=== PATIENT | male | born 2000 ===

== ENCOUNTER 2024-04-30 21:53 | Emergency (ER) | payer OTHER, SELFPAY ==
[2024-04-30 22:00] VITALS: BP 142/91; PULSE 86; RESP 18; TEMP 36.9; O2SAT 98; BMI 30.7
[2024-04-30 22:13] VITALS: BP 131/88; PULSE 79; RESP 17; TEMP 37.2; O2SAT 98
--- NOTE | 2024-04-30 22:59 | ED.MALEGU ---
HPI - Male Genitourinary General Chief complaint: Urogenital-Male Stated complaint: lower extremity pain, unable to urinate Time Seen by Provider: 04/30/24 22:26 Source: patient Mode of arrival: ambulatory Limitations: no limitations History of Present Illness ED Provider: Dr. Lily Arredondo HPI Narrative: Patient comes to the emergency room complaining of priapism that started 15-1/2 hours ago. Patient states that this morning he woke up at 07:45 with an erection, and now what 23:00, patient came to the ED. per patient's mother, patient takes trazodone. Related Data Previous Rx's ?Medication ?Instructions ?Recorded ibuprofen 600 mg tablet 600 mg PO Q8H PRN pain #14 tabs 05/01/24 Allergies Allergy/AdvReac Type Severity Reaction Status Date / Time No Known Allergies Allergy Verified 04/30/24 22:04 Review of Systems Review of Systems: Constitutional : No Weight loss, No Fever, No Chills, No Night Sweats, No Fatigue, No Malaise ENT/Mouth : No Hearing loss, No Ear Pain, No Nasal Congestion, No Sinus Pain, No Hoarseness, No sore throat, No Rhinorrhea, No Swallowing Difficulty Eyes: No Eye Pain, No Swelling, No Redness, No Foreign Body, No Discharge, No Vision Changes Cardiovascular : No Chest Pain, No SOB, No Dyspnea on Exertion, No Orthopnea, No Edema, No Palpitations Respiratory : No Cough, No Sputum, No Wheezing, No Smoke Exposure, No Dyspnea Gastrointestinal : No Nausea, No Vomiting, No Diarrhea, No Constipation, No abdominal Pain, No Hematochezia, No Melena Genitourinary : Complaining of priapism for 15-1/2 hours, No Dysuria, No Urinary Frequency, No Hematuria, No Urinary Incontinence, No Urgency, No Flank Pain, No Urinary Flow Changes, No Hesitancy Musculoskeletal : No joint pain, No Myalgias, No Joint Swelling Skin : No Skin Lesions, No rash Neuro : No Weakness, No Numbness, No Paresthesias, No Loss of Consciousness, No Dizziness, No Headache Psych : No Anxiety/Panic, No Depression, No SI/HI/AH/VH, No Social Issues, Heme/Lymph: No Bruising, No Bleeding,No Lymphadenopathy Endocrine : No Polyuria, No Polydipsia, No Temperature Intolerance PMFSH Past Medical History Medical History ADHD Bipolar disorder Priapism Social History Social History Advance Directives: No Advance Directives Information Provided: No Do you have a plan to hurt others: No Plan Physical Exam Vital Signs: Vital Signs: Last Vital Signs Temp 98 F 05/01/24 00:00 Pulse 61 05/01/24 00:00 Resp 16 05/01/24 00:00 BP 132/94 H 05/01/24 00:00 Pulse Ox 100 05/01/24 00:00 O2 Del Method Room Air 05/01/24 00:00 BMI result Body Mass Index 30.7 Const: Other: Appearance: Alert. Oriented X3. No acute distress. Eyes: Pupils equal, round and reactive to light. ENT: Pharynx normal. Neck: Normal inspection. Neck supple. No lymph nodes noted. No crepitus CVS: Normal heart rate and rhythm. Pulses normal. Normal S1 and S2 Respiratory: No respiratory distress. Breath sounds normal. No Wheezing. No rales Abdomen: Soft and nontender. No rigidity. No distention. : Patient has priapism Skin: Skin warm and dry. Normal skin color. Normal skin turgor. Extremities: No lower extremity edema. No Lacerations. No Rash Neuro: Oriented X 3. No motor deficit. No sensory deficit. Moving all extremities. No slurred speech. CN 2 through 12 grossly intact Psych: calm, cooperative, normal affect Course Course Course Narrative: I discussed the patient with Dr. Rowan, recommendations: mix 1mL (10mg) of phenylephrine in 9 mL of normal saline, inject in the penis 0.5 mL Q 5 minutes for 5 doses -patient very anxious, given 2 mg of p.o. Ativan and 50 mg of diphenhydramine p.o. -after 5 doses, the patient still had priapism. An 18 gauge needle was inserted in the middle lateral aspect of the penis, approximately 250 cc of blood were drained. The direction significantly reduced, patient states that he was able to urinate without any difficulty. Patient states that he did not urinate for almost 12 hours due to the erection. -I discussed with the patient that unfortunately, an erection lasting more than 4 hours puts him at high risk of erectile dysfunction -is likely that patient has trazodone caused the priapism. I discussed with the patient to discontinue taking trazodone. Patient's mother will call patient's psychiatrist tomorrow to inform them about the side effect that the medication had and to start a different med Medications Administered Discontinued Medications Generic Name Dose Route Start Last Admin Trade Name Timbo PRN Reason Stop Dose Admin Diphenhydramine HCl 50 mg 04/30/24 22:47 04/30/24 23:01 Diphenhydramine Hcl 25 Mg Capsule PO 04/30/24 22:48 50 mg ONCE ONE Administration Lidocaine HCl 10 ml 04/30/24 22:41 04/30/24 23:01 Lidocaine Hcl 1 % 10 Ml Vial INFILTRATI 04/30/24 22:42 10 ml ONCE ONE Administration Lidocaine HCl 20 ml 04/30/24 22:41 04/30/24 23:01 Lidocaine Hcl 2 % 20 Ml Vial INFILTRATI 04/30/24 22:42 20 ml ONCE ONE Administration Lorazepam 2 mg 04/30/24 22:47 04/30/24 23:01 Lorazepam 1 Mg Tablet PO 04/30/24 22:48 2 mg ONCE ONE Administration Phenylephrine HCl 1,000 mcg 04/30/24 22:40 04/30/24 23:01 Phenylephrine Hcl 1,000 Mcg/10 Ml Syringe IVPUSH 04/30/24 22:41 1,000 mcg STAT STA Administration Medical Decision Making Medical Decision Making MDM Narrative: -2 samples of penile blood were sent. According to the oil heat technician in the lab, she told me that the 1st set of labs, the pH was less than 6.5, and the 2nd 1 was also less than 6.5. Unclear why they resulted a pH of 7.33. The chemistry tech stated that they had trouble with a blood sample since this is penile blood and the instrumentation in the lab is not meant for penile blood. They said that they were not sure what to do, they had trouble running the blood. -patient's erection nearly resolved. Patient has no penile pain, able to urinate -I had a lengthy discussion with the patient to never let an erection go over 4 hours. If patient has an erection that is lasting more than an hour, he should start hitting towards the ED Differential Diagnosis Differential Diagnoses: The differential diagnosis associated with the presentation includes (Priapism high-flow, low-flow priapism, medication side-effect) Admission/Observation Consideration of admission/observation: Escalation of care including admission/observation considered (Given patient's presentation and length of symptoms, observation was considered) Consult Healthcare Provider Management of the patient was discussed with: Tile Setter Supervisor Lab Data Labs: Lab Results 04/30/24 Range/Units 23:38 VBG pH 7.33 (7.32-7.43) VBG pCO2 39 mmHg VBG pO2 66 mmHg VBG HCO3 21 L (22-26) mmol/L VBG O2 Saturation 93.0 % VBG Base Excess -4.3 mmol/L Procedures Penile Procedure Time Out Performed: Yes Indication: priapism management Procedural Sedation: No Sedation/Analgesia: benzodiazepines (P.o.) Local Anesthesia Used: lidocaine 1% without epi Amount of anesthesia used (mL): 15 Priapism Management: aspiration and phenylephrine injection Patient Tolerated Procedure: well and no complications Complications: none Critical Care Time Critical Care Time Critical Care Time: Yes Total Critical Care Time: 45 Attestation: I have personally provided critical care time. Time includes review of lab data, radiology results, discussion with consultants, and monitoring for potential decompensation. Intervention performed as documented. Discharge Plan Discharge Clinical Impression: Priapism Patient Disposition: Home, Self-Care Instructions: Priapism (ED) Additional Instructions: Please discontinue taking trazodone. Please call your psychiatrist tomorrow for medication substitution. An erection lasting more than 4 hours puts you a high risk of erectile dysfunction. If you ever have priapism again, please return immediately to the emergency room. Please follow-up with your primary care physician tomorrow. If you have any worsening or new symptoms, please return to the emergency room or call 911 Prescriptions: New ibuprofen 600 mg tablet 600 mg PO Q8H PRN (Reason: pain) Qty: 14 0RF Referrals: Haris Rowan MD [Physician] - 05/01/24 Print Language: [place] Citizen
[2024-04-30] MEDS: Lidocaine HCl 2 % 20 ML VIAL INFILTRATI (23:01)
[2024-04-30] MEDS: Phenylephrine HCL 1,000 MCG/10 ML SYRINGE 1000 MCG IVPUSH (23:01)
[2024-04-30] MEDS: diphenhydrAMINE HCL 25 MG CAPSULE 50 MG PO (23:01)
[2024-04-30] MEDS: Lidocaine HCl 1 % 10 ML VIAL INFILTRATI (23:01)
[2024-04-30] MEDS: LORazepam 1 MG TABLET 2 MG PO (23:01)
[2024-04-30 23:47] LABS: VBG Base Excess -4.3 mmol/L; VBG HCO3 21 mmol/L (22-26); VBG pCO2 39 mmHg; VBG pH 7.33 (7.32-7.43); VBG pO2 66 mmHg
[2024-04-30 23:49] LABS: Venous Blood Gas Refer to POC result
[2024-05-01] VITALS: BP 132/94; PULSE 61; RESP 16; TEMP 36.6; O2SAT 100
--- NOTE | 2024-05-01 00:17 | PC.NURSE ---
pt medicated per dec approx 2300 and MD to bedside. this RN present in room during procedure with MD. VBG sample obtained of penile blood and sent to lab. pt remained calm/cooperative during procedure and tolerated well. pt is axox4 speaking full clear sentences and denies concerns at this time.
[2024-05-01 01:40] VITALS: BP 132/94; PULSE 61; RESP 16; TEMP 36.6; O2SAT 100
== END 2024-05-01 04:25 | disposition home or self-care (01) ==
PROVIDERS: Emergency Provider Emergency Medicine
DX: N48.30 Priapism, unspecified (principal); F41.9 Anxiety disorder, unspecified; F90.9 Attention-deficit hyperactivity disorder, unspecified type; F31.9 Bipolar disorder, unspecified
CPT/HCPCS: 36415; 54220; 82803; 96374; 99283; 99285; J2371

== ENCOUNTER 2024-05-12 12:51 | Outpatient (AMB) | payer OTHER, SELFPAY ==
--- NOTE | 2024-05-12 12:55 | A.OFFVIS_ITS ---
Intake Visit Reasons: priapism Intake Note: Patient is present for priapism Urology Medication:none Antibiotic Allergy:none Blood Thinner:none today's pvr: 0ml's Window Glass Cutter Off Required: No Allergies No Known Allergies Allergy (Verified 05/12/24 12:56) HPI Comments Details: Ivan is a very pleasant 24-year-old male patient who was accompanied by his mother at today's office visit. He has a past medical history of ADHD and bipolar. He presents to the office today as a new patient for priapsim. In discussion with the patient and his mother today they discuss having seeked emergency room care approximately 2-3 weeks ago for priapism likely related to patient's trazodone. He reports he has since stopped taking his trazodone and is following up with his psychiatrist this week for further treatment options. He reports feeling he has been able to obtain erections however does feel they are how they were prior to episode of priapism. We discussed given patient's inc reased length of priapsim of 15+ hours puts him at increased risk for erectile dysfunction. In review of patient's chart it appears patient was given injectable phenylephrine into penis without improvement therefore an 18 gauge needle was inserted into the middle lateral aspect of the penis and approximately 250 cc of blood was drained at which time there was significantly reduced patient is erection. He does report to be urinating without any difficulty. He denies any bothersome urinary issues or concerns. In office urinalysis results reviewed with the patient today. He otherwise offers no other issues or concerns at this time. [facility] Medical History (Updated 05/12/24 @ 14:21 by CHLOE Koch) ADHD Bipolar disorder Priapism Review of Systems Const All systems reviewed & are unremarkable except as noted in HPI and below Physical Exam Const General: cooperative, healthy appearing, comfortable, no acute distress, well developed, alert and awake Orientation/consciousness: patient oriented x3 Limitations: no limitations HEENT Head: Yes normal to inspection, Yes normocephalic and Yes atraumatic Ears: hearing grossly normal bilaterally Eyes General: appearance normal, both eyes and all related structures Neck Neck: Yes normal visual inspection and Yes trachea midline Chest Chest palpation & inspection: normal inspection of the chest Resp Effort & Inspection: normal respiratory effort and able to speak in complete sentences Cardio Rate: regular rate GI Inspection: Yes normal to inspection General: Yes no CVA tenderness Back/Spine/Pelvis Back: no CVA tenderness Skin General skin exam: no rashes or lesions noted Neuro General: patient oriented x3 Extrem General: Yes normal to inspection Psych Appearance: grossly normal and well kempt Mental Status: mental status grossly normal Speech and movement: Normal speech and movement present and Clear speech present Affect: normal affect Attitude: cooperative Thought process: Normal thought process present Thought content: Normal thought content present Insight: Fair insight present (Psych) Judgement: Fair judgement present (Psych) Office Procedures Post Void Residual Post Residual Void Post Void Residual (PVR): 0 [id number] Void Residual by ultrasound Assessment & Plan Assessment & Plan (1) Erectile dysfunction: Code(s): N52.9 - Male erectile dysfunction, unspecified Category: Medical (2) Priapism: Code(s): N48.30 - Priapism, unspecified Category: Medical Plan In office urinalysis results reviewed with the patient today; as noted above. Discussed further erectile dysfunction workup given prolonged priapism. Patient currently denies any bothersome urinary issues or concerns. Continue to follow-up with psychologist for further treatment options of bipolar and ADHD. Discussed possible near future penile Doppler for further assessment evaluation. Discussed further treatment options of erectile dysfunction as well as lifestyle modifications to assist with erectile dysfunction. Follow-up in 3 months; or sooner with any issues, concerns, and or questions. Patient Instructions: The patient had an opportunity to ask questions regarding the treatment plan. All questions were answered. Physical exam, labs, and imaging were discussed and reviewed in detail. As well as risks, benefits, and discussion of treatment choices. No major barriers to understanding were identified. The patient expressed understanding and agreement with the above treatment plan. The patient was made aware they should contact our office by phone for worsening of their current condition, the appearance of new symptoms, or with any questions or concerns. Compliance is encouraged with any medications and follow up testing that is ordered. It is a privilege to be allowed the opportunity to participate in? your urological care.? Again, if you have any questions or concerns If you have any questions or concerns please do not hesitate to contact me. The office is [phone]. This note is constructed using voice recognition software. While every effort has been made to ensure accuracy farm crew leader errors may have been included. Yours sincerely, ISAIAS Koch-BC Coding Level of Care Code New Pt Level 3 (71692) Diagnoses Erectile dysfunction N52.9 Priapism N48.30 CPT Codes Post Residual Void - PVR CPT Code: 91561-[id number] Void Residual by ultrasound ([id number])
== END 2024-05-12 13:29 | disposition home or self-care (01) ==
PROVIDERS: Visit Provider Nurse Practitioner Family
DX: N52.9 Male erectile dysfunction, unspecified (principal); N48.30 Priapism, unspecified
CPT/HCPCS: 99203

== ENCOUNTER → 2024-05-12 12:51 | Outpatient (BNVA) | payer OTHER, SELFPAY | PROVIDERS: Visit Provider Nurse Practitioner Family | DX: N48.30 Priapism, unspecified (principal); N52.9 Male erectile dysfunction, unspecified | CPT/HCPCS: 51798; 99202 ==

== ENCOUNTER 2024-06-06 07:33 | Emergency (ER) | payer OTHER, SELFPAY ==
[2024-06-06 07:42] VITALS: BP 135/79; PULSE 80; RESP 16; TEMP 36.7; O2SAT 96; BMI 25.8
[2024-06-06 07:49] VITALS: BP 135/79; PULSE 89; RESP 16; TEMP 36.7; O2SAT 96
--- NOTE | 2024-06-06 08:06 | ED.GENADULT ---
HPI - General Adult General Chief complaint: General Medical Stated complaint: personal issue Time Seen by Provider: 06/06/24 07:42 Source: patient Mode of arrival: ambulatory Limitations: no limitations History of Present Illness HPI narrative: This is a 24 years old presented to the emergency department priapism, he had prior episode April 30 2024, erection started around 07:00 Onset (ago): hour(s) (2) Radiation: non-radiation Severity: moderate Quality: burning Pain Consistency: constant Relieving factors: none Exacerbating factors: none Associated symptoms: denies other symptoms Related Data Home Medications ?Medication ?Instructions ?Recorded ?Confirmed Focalin XR 06/06/24 aripiprazole 06/06/24 divalproex 06/06/24 fluoxetine 06/06/24 guanfacine 06/06/24 melatonin 06/06/24 mirtazapine 06/06/24 Previous Rx's ?Medication ?Instructions ?Recorded ibuprofen 600 mg tablet 600 mg PO Q8H PRN pain #14 tabs 05/01/24 Allergies Allergy/AdvReac Type Severity Reaction Status Date / Time No Known Allergies Allergy Verified 06/10/24 05:50 Review of Systems Constitutional: Constitutional: Reports no additional constitutional complaints Cardiovascular: Cardiovascular: Reports no additional cardiovascular complaints Neurologic: Reports system reviewed and no additional complaints, except as documented [facility] Past Medical History Attestation statement: The following information was validated with the patient. [facility] Narrative: Bipolar disorder Medical History ADHD Bipolar disorder [facility] Social History Social History Alcohol intake: current Alcohol intake frequency: holidays/special occasions only Smoked in Last 30 Days: Yes Use of substances other than those prescribed or required for medical reasons: Yes Substance Use Type: Marijuana Advance Directives: No Advance Directives Information Provided: No Do you have a plan to hurt others: No Plan Physical Exam ED Vital Signs: Vital Signs - 24 hr 06/06/24 07:42 06/06/24 07:49 06/06/24 10:08 Temperature 98.0 F 98.0 F 97.9 F Pulse Rate 80 89 60 Respiratory Rate 16 16 16 Blood Pressure 135/79 135/79 131/76 Pulse Oximetry 96 96 98 Oxygen Delivery Method Room Air Room Air Room Air 06/06/24 11:36 06/06/24 12:40 Temperature 97.5 F Pulse Rate 78 66 Respiratory Rate 16 Blood Pressure 125/87 116/71 Pulse Oximetry 96 Oxygen Delivery Method Room Air BMI result Body Mass Index 25.8 Const General: cooperative Orientation/consciousness: patient oriented x3 HENMT Head: Yes normal to inspection Ears: hearing grossly normal bilaterally General nose exam: Normal external nose present Face and sinus: Yes normal facial exam Mouth: Normal oral and palatal mucosa present Teeth and gingiva: dentition normal Neck Neck: Yes normal visual inspection Thyroid: Thyroid normal Chest Chest palpation & inspection: normal inspection of the chest Cardio Rate: regular rate Rhythm: regular rhythm GI Inspection: Yes normal to inspection Palpation (GI): Soft to palpation, not firm and nontender Auscultation: normal bowel sounds Other: Erection is present General: Yes no CVA tenderness Back/Spine/Pelvis Back: no CVA tenderness Neuro General: patient oriented x3 Course Reevaluation(s) Reevaluation #1: spoke with urologist will see pt in ED Time: 09:33 Reevaluation #2: Patient had an episode of pseudo seizure he was given 1 mg of lorazepam IV Time: 09:57 Reevaluation #3: Urologist here Time: 10:59 Additional Reevaluation(s): 13:00 asymptomatic Medications Administered Discontinued Medications Generic Name Dose Route Start Last Admin Trade Name Freq PRN Reason Stop Dose Admin Sodium Chloride 1,000 mls @ 999 mls/hr 06/06/24 08:30 06/06/24 10:14 Ns IVCONT 06/06/24 09:30 Infused .Q1H1M KESHAWN Infusion Ketorolac Tromethamine 15 mg 06/06/24 09:25 06/06/24 09:32 Ketorolac Tromethamine 15 Mg/Ml Vial IVPUSH 06/06/24 09:26 15 mg ONCE ONE Administration Lidocaine HCl 20 ml 06/06/24 09:32 06/06/24 11:00 Lidocaine Hcl 1 % 20 Ml Vial SUBCUT 06/06/24 09:33 20 ml ONCE ONE Administration Lorazepam 2 mg 06/06/24 08:16 06/06/24 08:22 Lorazepam 1 Mg Tablet PO 06/06/24 08:17 2 mg ONCE ONE Administration Morphine Sulfate 4 mg 06/06/24 09:26 06/06/24 09:32 Morphine Sulfate 4 Mg/Ml Cartridge IVPUSH 06/06/24 09:27 4 mg ONCE ONE Administration Protocol Phenylephrine HCl 1,000 mcg 06/06/24 08:15 06/06/24 11:00 Phenylephrine Hcl 1,000 Mcg/10 Ml Syringe IVPUSH 06/06/24 08:16 1,000 mcg STAT STA Administration Phenylephrine HCl 0 mg 06/06/24 11:15 06/06/24 11:36 Phenylephrine Hcl 10 Mg/Ml Vial INTRACAVER 06/06/24 11:16 10 mg ONCE ONE Administration Pseudoephedrine HCl 60 mg 06/06/24 08:28 06/06/24 09:27 Pseudoephedrine Hcl 30 Mg Tablet PO 06/06/24 08:29 60 mg ONCE ONE Administration Medical Decision Making Medical Decision Making [facility] Narrative: Patient presented to emergency room with an erection/priapism will consult Urology Differential Diagnosis Differential Diagnoses: The differential diagnosis associated with the presentation includes Priapism Consult Healthcare Provider Urologist Nahun Independent Historian Clinical information obtained from an independent historian. History obtained from or confirmed by: Other (mother) External Record Review External record reviewed: Inpatient record Chronic Conditions Patient?s care impacted by: Other (bipolar Disorder) Discharge Plan Discharge Clinical Impression: Priapism Patient Disposition: Home, Self-Care Instructions: Priapism (ED) Prescriptions: No Action ibuprofen 600 mg tablet 600 mg PO Q8H PRN (Reason: pain) Qty: 14 0RF guanfacine 3 mg Focalin XR 40 mg mirtazapine 7.5 mg fluoxetine 40 mg melatonin 5 mg aripiprazole 5 mg divalproex 250 mg Referrals: Bertha Grant MD [Physician] - 06/09/24 Interventions: ED Discharge Assessment Last Done: 06/06/24 13:07 Discharge Date/Time: 06/06/24 13:15 Print Language: Latvian
[2024-06-06] MEDS: LORazepam 1 MG TABLET 2 MG PO (08:22)
[2024-06-06] MEDS: 0.9 % Sodium Chloride 1,000 ML 999 ML IVCONT (08:50)
[2024-06-06] MEDS: Pseudoephedrine HCL 30 MG TABLET 60 MG PO (09:27)
[2024-06-06] MEDS: Ketorolac Tromethamine 15 MG/ML VIAL IVPUSH (09:32)
[2024-06-06] MEDS: Morphine Sulfate 4 MG/ML CARTRIDGE IVPUSH (09:32)
[2024-06-06 10:08] VITALS: BP 131/76; PULSE 60; RESP 16; TEMP 36.6; O2SAT 98
[2024-06-06] MEDS: Phenylephrine HCL 1,000 MCG/10 ML SYRINGE 1000 MCG IVPUSH (11:00)
[2024-06-06] MEDS: Lidocaine HCl 1 % 20 ML VIAL SUBCUT (11:00)
[2024-06-06 11:36] VITALS: BP 125/87; PULSE 78
[2024-06-06] MEDS: Phenylephrine HCL 10 MG/ML VIAL INTRACAVER (11:36)
--- NOTE | 2024-06-06 11:37 | PM.UROCN ---
History of Present Illness Consult details Consult date: 06/06/24 Narrative: Derek is a 24 year old H bipolar, ADHD who presented to the emergency department priapism, erection started around 07:00; He had prior episode April 30 2024 related to trazodone use. He states he woke up with erection, denies using other medication than prescribed or drugs within 24 hrs of episode. Denies cocaine use. Review of Systems Review of Systems: Yes all other systems are reviewed and are negative Constitutional: Constitutional: Reports no additional constitutional complaints Eyes: Eyes: Reports no additional eye complaints ENT: Reports system reviewed and no additional complaints, except as documented Cardiovascular: Cardiovascular: Reports no additional cardiovascular complaints Respiratory: Respiratory: Reports no additional respiratory complaints Gastrointestinal: Gastrointestinal: Reports no additional gastrointestinal complaints Genitourinary: Genitourinary: Reports as per HPI Musculoskeletal: Musculoskeletal: Reports no additional musculoskeletal complaints Integumentary/Breasts: Skin/Breast: Reports system reviewed and no additional complaints, except as docu Neurologic: Reports system reviewed and no additional complaints, except as documented Psychiatric: Psychiatric: Reports no additional psychiatric complaints Endocrine: Endocrine: Reports no additional endocrine complaints Hematologic/Lymphatic: Hematologic/Lymphatic: Reports no additional hematologic/lymphatic complaints Allergic/Immunologic: Allergic/Immunologic: Reports no additional allergic/immunologic complaints [facility] Past Medical History Medical History ADHD Bipolar disorder Priapism Social History Social History Alcohol intake: current Alcohol intake frequency: holidays/special occasions only Smoked in Last 30 Days: Yes Advance Directives: No Advance Directives Information Provided: No Do you have a plan to hurt others: No Plan Meds Allergies Allergy/AdvReac Type Severity Reaction Status Date / Time No Known Allergies Allergy Verified 06/06/24 07:46 Home Medications ?Medication ?Instructions ?Recorded ?Confirmed ?Last Taken ?Type Focalin XR 06/06/24 06/05/24 History 40 mg aripiprazole 06/06/24 06/05/24 History 5 mg divalproex 06/06/24 06/05/24 History 250 mg fluoxetine 06/06/24 06/05/24 History 40 mg guanfacine 06/06/24 06/05/24 History 3 mg melatonin 06/06/24 06/05/24 History 5 mg mirtazapine 06/06/24 06/05/24 History 7.5 mg Physical Exam Vital Signs: Vital Signs: Last Vital Signs Temp 97.9 F 06/06/24 10:08 Pulse 60 06/06/24 10:08 Resp 16 06/06/24 10:08 BP 131/76 06/06/24 10:08 Pulse Ox 98 06/06/24 10:08 O2 Del Method Room Air 06/06/24 10:08 BMI result Body Mass Index 25.8 Const: General: healthy appearing, no acute distress and well developed Orientation/consciousness: patient oriented x3 HEENT: Head: Yes normocephalic and Yes atraumatic Eyes: Conjunctivae: conjunctivae normal Neck: Neck: Yes normal visual inspection Chest: Chest palpation & inspection: normal inspection of the chest Resp: Effort & Inspection: normal respiratory effort Cardio: Rate: regular rate GI: Inspection: Yes normal to inspection Palpation (GI): Soft to palpation : Penis: circumcised and other (priapism) Scrotum: scrotum normal Neuro: General: patient oriented x3 Extrem: General: No pedal edema Psych: Appearance: grossly normal Affect: normal affect Results Labs Labs: All other labs normal. Procedures Date of Service Date of Service: 06/06/24 Penile Procedure Time out performed: Yes Indication: priapism management Procedural sedation: No Local anesthesia used: lidocaine 1% without epi Amount of anesthesia used (ml): 10 Priapism management: aspiration and phenylephrine injection Patient tolerated procedure: well and no complications Penile procedure complications: none Additional comments: The patient had previously received 1liter IVF's, BP was monitored during the procedure. Penile block with 10 mL 1% lidocaine/plain. Phenylephrine 10mg/1mL was mixed with 10 mL normal saline and l mL was injected with a 25 marilin needle on the right side of the corpora, on the left side, using an 18 marilin needle 22 mL of blood was removed, pressure applied to the site. There was excellent detomescence and resolution of the erection.
[2024-06-06 12:40] VITALS: BP 116/71; PULSE 66; RESP 16; TEMP 36.4; O2SAT 96
[2024-06-06 13:07] VITALS: BP 116/71; PULSE 66; RESP 16; TEMP 36.4; O2SAT 96
== END 2024-06-06 13:15 | disposition home or self-care (01) ==
PROVIDERS: Emergency Provider Emergency Medicine
DX: N48.30 Priapism, unspecified (principal); R56.9 Unspecified convulsions; N52.9 Male erectile dysfunction, unspecified
CPT/HCPCS: 96361; 96372; 96374; 96375; 99284; J1885; J2270; J2371

== ENCOUNTER → 2024-06-06 08:49 | Outpatient (BNV) | payer OTHER, SELFPAY | PROVIDERS: Emergency Provider Emergency Medicine; Visit Provider Urology | DX: N48.30 Priapism, unspecified (principal) | CPT/HCPCS: 54450; 99283 ==

== ENCOUNTER 2024-06-10 05:43 | Emergency (ER) | payer OTHER, SELFPAY ==
[2024-06-10 05:47] VITALS: BP 143/94; PULSE 75; RESP 20; TEMP 36.5; O2SAT 97; BMI 30.7
--- NOTE | 2024-06-10 06:10 | ED.MALEGU ---
HPI - Male Genitourinary General Chief complaint: Urogenital-Male Stated complaint: pain from prolonged erection Time Seen by Provider: 06/10/24 06:03 Source: patient Mode of arrival: ambulatory Limitations: no limitations History of Present Illness ED Provider: Dr. Trammell HPI Narrative: This is the third visit in a few days with priapism. Patient is on trazadone and fluoexitine Onset (ago): hour(s) Related Data Home Medications ?Medication ?Instructions ?Recorded ?Confirmed Focalin XR 06/06/24 aripiprazole 06/06/24 divalproex 06/06/24 fluoxetine 06/06/24 guanfacine 06/06/24 melatonin 06/06/24 mirtazapine 06/06/24 Previous Rx's ?Medication ?Instructions ?Recorded ibuprofen 600 mg tablet 600 mg PO Q8H PRN pain #14 tabs 05/01/24 Allergies Allergy/AdvReac Type Severity Reaction Status Date / Time No Known Allergies Allergy Verified 06/10/24 05:50 Review of Systems Review of Systems: Yes all other systems are reviewed and are negative Neurologic: Denies Sensory deficit (Neuro) [facility] Past Medical History Medical History ADHD Bipolar disorder Priapism Social History Social History Alcohol intake: current Alcohol intake frequency: holidays/special occasions only Smoked in Last 30 Days: Yes Use of substances other than those prescribed or required for medical reasons: Yes Substance Use Type: Marijuana Advance Directives: No Advance Directives Information Provided: No Do you have a plan to hurt others: No Plan Physical Exam Vital Signs: Vital Signs: Last Vital Signs Temp 98.0 F 06/10/24 07:05 Pulse 62 06/10/24 07:05 Resp 16 06/10/24 07:05 BP 130/85 06/10/24 07:05 Pulse Ox 96 06/10/24 07:05 O2 Del Method Room Air 06/10/24 07:05 BMI result Body Mass Index 30.7 Const: General: healthy appearing Nutritional Appearance: average body habitus Orientation/consciousness: oriented to person and patient oriented x3 Limitations: no limitations HEENT: Head: Yes normal to inspection Ears: external ears normal General nose exam: Normal external nose present Mouth: Normal oral and palatal mucosa present and oropharynx normal Throat: Yes posterior oropharynx normal Eyes: General: appearance normal, both eyes and all related structures Neck: Other: supple Neck: Yes normal visual inspection Chest: Chest palpation & inspection: normal inspection of the chest Resp: Auscultation: clear to auscultation bilaterally Cardio: Jugular venous distension: no JVD Rate: regular rate Rhythm: regular rhythm Heart sounds: S1 normal heart sound present and S2 normal heart sound present GI: Inspection: Yes normal to inspection Palpation (GI): Soft to palpation, nontender and No hepatosplenomegaly present Auscultation: normal bowel sounds : Other: hard erection, glans spongy not overly hard General: Yes no CVA tenderness Back/Spine/Pelvis: Back: no CVA tenderness Skin: General skin exam: no rashes or lesions noted Neuro: General: oriented to person and patient oriented x3 Cranial nerves: Yes CN's II-XII intact bilaterally Motor exam (neuro): 5/5 motor strength present throughout Sensory Exam: No Sensory deficit (Neuro) Extrem: General: Yes normal to inspection Psych: Appearance: grossly normal Course Reevaluation(s) Reevaluation #1: procedure: patient prepped and draped in sterile fashion, 10cc blood removed from cavernous on right and 5-7 cc removed from the left. .5cc of phenylephrine 10mg 1cc diluted in 9cc saline injected on both sides. Withing 15minutes the penis was completley flacid Time: 07:08 Medications Administered Discontinued Medications Generic Name Dose Route Start Last Admin Trade Name Freq PRN Reason Stop Dose Admin Lidocaine HCl 2 ml 06/10/24 06:34 06/10/24 06:35 Lidocaine Hcl 1 % Mpf 2 Ml Vial INFILTRATI 06/10/24 06:35 2 ml ONCE ONE Administration Phenylephrine HCl 0.01 mg 06/10/24 06:05 06/10/24 06:19 Phenylephrine Hcl 10 Mg/Ml Vial INTRACAVER 06/10/24 06:06 0.01 mg ONCE ONE Administration Medical Decision Making Differential Diagnosis Differential Diagnoses: The differential diagnosis associated with the presentation includes (priapism) Admission/Observation Consideration of admission/observation: Escalation of care including admission/observation considered (upon arrival admission was considered) Independent Historian Clinical information obtained from an independent historian. History obtained from or confirmed by: Parent (mother) Chronic Conditions Patient?s care impacted by: Other (depression and bipolar) Discharge Plan Discharge Clinical Impression: Priapism, Bipolar 1 disorder Patient Disposition: Home, Self-Care Instructions: Bipolar Disorder (ED), Priapism (ED) Additional Instructions: must stop all psychiatric medications Prescriptions: No Action ibuprofen 600 mg tablet 600 mg PO Q8H PRN (Reason: pain) Qty: 14 0RF guanfacine 3 mg Focalin XR 40 mg mirtazapine 7.5 mg fluoxetine 40 mg melatonin 5 mg aripiprazole 5 mg divalproex 250 mg Referrals: Bertha Grant MD [Physician] - 3 days Print Language: Uzbek
[2024-06-10 06:19] VITALS: BP 143/94; PULSE 68
[2024-06-10] MEDS: Phenylephrine HCL 10 MG/ML VIAL INTRACAVER (06:19)
[2024-06-10] MEDS: Lidocaine HCl 1 % MPF 2 ML VIAL INFILTRATI (06:35)
[2024-06-10 07:05] VITALS: BP 130/85; PULSE 62; RESP 16; TEMP 36.7; O2SAT 96
[2024-06-10 07:15] VITALS: BP 130/85; PULSE 62; RESP 16; TEMP 36.7; O2SAT 96
== END 2024-06-10 07:16 | disposition home or self-care (01) ==
PROVIDERS: Emergency Provider Emergency Medicine
DX: N48.30 Priapism, unspecified (principal); N52.9 Male erectile dysfunction, unspecified; F31.9 Bipolar disorder, unspecified; F90.9 Attention-deficit hyperactivity disorder, unspecified type; Z79.899 Other long term (current) drug therapy
CPT/HCPCS: 54220; 99284; J2371

== ENCOUNTER 2024-06-30 09:13 | Emergency (ER) | payer OTHER, SELFPAY ==
[2024-06-30 09:23] VITALS: BP 115/67; PULSE 78; RESP 18; O2SAT 99; BMI 28.5
[2024-06-30] MEDS: Ketorolac Tromethamine 15 MG/ML VIAL IVPUSH (09:54)
--- NOTE | 2024-06-30 09:54 | ED_ITS ---
HPI - Male Genitourinary General Chief complaint: Urogenital-Male Stated complaint: Genital issues Time Seen by Provider: 06/30/24 09:26 Source: patient, family, RN notes reviewed and old records reviewed Mode of arrival: ambulatory History of Present Illness ED Provider: Terra Angel PA-C HPI Narrative: 24-year-old male with a past medical history of ADHD, bipolar, priaprism, presenting to the ED complaining of priaprism since 06:30. Admits woke up with symptoms. Mother reports recently discontinued 3 medications including Trazodone (which was believed to be causing his symptoms), denies new medication/other changes. Patient admits he is still able to urinate. Denies abdominal pain, trauma, fever, nausea/vomiting. Last episode of priapism in our ED on 06/06 Related Data Home Medications ?Medication ?Instructions ?Recorded ?Confirmed Focalin XR 06/06/24 aripiprazole 06/06/24 divalproex 06/06/24 fluoxetine 06/06/24 guanfacine 06/06/24 melatonin 06/06/24 mirtazapine 06/06/24 Previous Rx's ?Medication ?Instructions ?Recorded ibuprofen 600 mg tablet 600 mg PO Q8H PRN pain #14 tabs 05/01/24 Allergies Allergy/AdvReac Type Severity Reaction Status Date / Time No Known Allergies Allergy Verified 06/30/24 09:24 Review of Systems Review of Systems: Yes all other systems are reviewed and are negative Constitutional: Constitutional: Reports as per [facility] Past Medical History Attestation statement: The following information was validated with the patient. Source: old records reviewed Medical History ADHD Bipolar disorder Priapism Social History Social History Alcohol intake: current Alcohol intake frequency: holidays/special occasions only Substance Use Type: Marijuana Advance Directives: No Advance Directives Information Provided: Yes Physical Exam Vital Signs: Vital Signs: Last Vital Signs Pulse 58 06/30/24 11:00 Resp 18 06/30/24 09:23 BP 110/73 06/30/24 11:00 Pulse Ox 99 06/30/24 09:23 O2 Del Method Room Air 06/30/24 09:23 BMI result Body Mass Index 28.5 Const: General: cooperative, healthy appearing and no acute distress Orientation/consciousness: patient oriented x3 Limitations: no limitations HEENT: Head: Yes normal to inspection and Yes atraumatic Ears: hearing grossly normal bilaterally General nose exam: Normal external nose present Face and sinus: Yes normal facial exam Eyes: General: appearance normal, both eyes and all related structures EOM: EOMs intact bilaterally Neck: Neck: Yes normal visual inspection and Yes no meningeal signs Resp: Effort & Inspection: normal respiratory effort and no respiratory distress Cardio: Rate: regular rate GI: Inspection: Yes normal to inspection Palpation (GI): Soft to palpation, nontender, no guarding and not rigid : Penis: circumcised and other (+erection ) Skin: Rashes: no rashes Wounds: no wounds Neuro: General: patient oriented x3, tone normal and no meningeal signs Cranial nerves: Yes CN's II-XII intact bilaterally Gait exam (Neuro): Normal gait present Extrem: General: Yes normal to inspection Course Course Course Narrative: -Dr. Price performed bedside aspiration and phenylephrine injection. > will continue to monitor and observe -[id number]--patient remains with out erection after drainage/phenylephrine injection in the ED by Urology. Requesting discharge home. Cleared by Urology for discharge. Discussed at length with patient and mother needed follow-up with therapist/psychiatrist for medication evaluation as priapism is likely induced by his psychiatric medications. Recommend hematology follow-up or other causes Results discussed with patient including worrisome signs and symptoms and strict return precautions, and when to return to the emergency department. They verbalized understanding and feel safe for discharge at this time. Medications Administered Discontinued Medications Generic Name Dose Route Start Last Admin Trade Name Freq PRN Reason Stop Dose Admin Sodium Chloride 1,000 mls @ 999 mls/hr 06/30/24 09:45 06/30/24 11:56 Ns IV 06/30/24 10:45 Infused .Q1H1M KESHAWN Infusion Sodium Chloride 1,000 mls @ 999 mls/hr 06/30/24 11:00 06/30/24 12:01 Ns IV 06/30/24 12:00 Infused .Q1H1M KESHAWN Infusion Ketorolac Tromethamine 15 mg 06/30/24 09:36 06/30/24 09:54 Ketorolac Tromethamine 15 Mg/Ml Vial IVPUSH 06/30/24 09:37 15 mg ONCE ONE Administration Lidocaine HCl 5 ml 06/30/24 10:35 06/30/24 10:44 Lidocaine Hcl 1 % Mpf 5 Ml Vial INFILTRATI 06/30/24 10:36 5 ml ONCE ONE Administration Morphine Sulfate 2 mg 06/30/24 10:19 06/30/24 10:38 Morphine Sulfate 2 Mg/Ml Cartridge IVPUSH 06/30/24 10:20 2 mg ONCE ONE Administration Protocol Phenylephrine HCl 1,000 mcg 06/30/24 10:13 06/30/24 11:57 Phenylephrine Hcl 1,000 Mcg/10 Ml Syringe IVPUSH 06/30/24 10:14 Not Given STAT STA Phenylephrine HCl 10 mg 06/30/24 10:46 06/30/24 11:00 Phenylephrine Hcl 10 Mg/Ml Vial INTRACAVER 06/30/24 10:47 10 mg STAT STA Administration Medical Decision Making Medical Decision Making MDM Narrative: 24-year-old male with a past medical history of ADHD, bipolar, priaprism, presenting to the ED complaining of priaprism since 06:30 (3hrs). On exam vital signs stable, NAD/nontoxic appearing, erection appreciated on exam. Concern for medication induced priaprism. Plan: UA, pain control, consult Urology Please refer to course for remaining clinical decision making, interpretation of labs/imaging results, and discussions with consultants and/or family members. Differential Diagnosis Differential Diagnoses: The differential diagnosis associated with the presentation includes As above Consult Healthcare Provider Management of the patient was discussed with: Business Support Coordinator Lab Data [facility] Lab Attestation statement: I reviewed the patient's lab results. Independent Historian Clinical information obtained from an independent historian. History obtained from or confirmed by: Parent External Record Review External record reviewed: Inpatient record, Office record, Outpatient record, Prior outpatient labs, Prior outpatient radiology, Primary care record and Outside ED record Tests considered The following testing was considered but not selected: As above Prescription Management I considered prescription management with: Pain Medication Chronic Conditions Patient?s care impacted by: Other Critical Care Time Critical Care Time Critical Care Time: Yes Total Critical Care Time: 35 Attestation: I have personally provided critical care time exclusive of time spent on separately billable procedures. Time includes review of lab data, radiology results, discussion with consultants, and monitoring for potential decompensation. Intervention performed as documented. Discharge Plan Discharge Clinical Impression: Priapism Patient Disposition: Home, Self-Care Instructions: Priapism (ED) Additional Instructions: Please call your psychiatrist/therapist for medication recommendations. Your current psychiatric medications are likely causing your erections. If you have recurrent erection, or any erection lasting more than 4 hours this puts you at risk of erectile dysfunction. Please return to the ED immediately or call 911 Please follow-up with hematology for further workup/possible other causes Please take Tylenol and ibuprofen at home Prescriptions: No Action ibuprofen 600 mg tablet 600 mg PO Q8H PRN (Reason: pain) Qty: 14 0RF guanfacine 3 mg Focalin XR 40 mg mirtazapine 7.5 mg fluoxetine 40 mg melatonin 5 mg aripiprazole 5 mg divalproex 250 mg Referrals: [facility] Urology Services [Provider Group] [facility] Oncology/Hematology [Provider Group] Stand Alone Forms: Work/School Release Print Language: Maltese
[2024-06-30] MEDS: 0.9 % Sodium Chloride 1,000 ML 999 ML IV ×2 (09:55→11:00)
[2024-06-30] MEDS: Morphine Sulfate 2 MG/ML CARTRIDGE IVPUSH (10:38)
[2024-06-30] MEDS: Lidocaine HCl 1 % MPF 5 ML VIAL INFILTRATI (10:44)
[2024-06-30 11:00] VITALS: BP 110/73; PULSE 58
[2024-06-30] MEDS: Phenylephrine HCL 10 MG/ML VIAL INTRACAVER (11:00)
--- NOTE | 2024-06-30 11:06 | P.CNUR_ITS ---
History of Present Illness Consult details Consult date: 06/30/24 Narrative: 24-year-old male with a past medical history of ADHD, bipolar, priaprism, presenting to the ED complaining of priaprism since 06:30. Admits woke up with symptoms. Mother reports recently discontinued 3 medications including Trazodone (which was believed to be causing his symptoms), denies new medication/other changes. Patient admits he is still able to urinate. Denies abdominal pain, trauma, fever, nausea/vomiting. Last episode of priapism in our ED on 06/06. Review of Systems Review of Systems: Yes all other systems are reviewed and are negative Constitutional: Constitutional: Reports no additional constitutional complaints Eyes: Eyes: Reports no additional eye complaints ENT: Reports system reviewed and no additional complaints, except as documented Cardiovascular: Cardiovascular: Reports no additional cardiovascular complaints Respiratory: Respiratory: Reports no additional respiratory complaints Gastrointestinal: Gastrointestinal: Reports no additional gastrointestinal complaints Genitourinary: Genitourinary: Reports as per HPI Musculoskeletal: Musculoskeletal: Reports no additional musculoskeletal complaints Integumentary/Breasts: Skin/Breast: Reports system reviewed and no additional complaints, except as docu Neurologic: Reports system reviewed and no additional complaints, except as documented Psychiatric: Psychiatric: Reports no additional psychiatric complaints Endocrine: Endocrine: Reports no additional endocrine complaints Hematologic/Lymphatic: Hematologic/Lymphatic: Reports no additional hematologic/lymphatic complaints Allergic/Immunologic: Allergic/Immunologic: Reports no additional allergic/immunologic complaints [facility] Past Medical History Medical History ADHD Bipolar disorder Priapism Social History Social History Alcohol intake: current Alcohol intake frequency: holidays/special occasions only Substance Use Type: Marijuana Advance Directives: No Advance Directives Information Provided: Yes Meds Allergies Allergy/AdvReac Type Severity Reaction Status Date / Time No Known Allergies Allergy Verified 06/30/24 09:24 Active Medications: Current Medications Sodium Chloride (Ns) 1,000 mls @ 999 mls/hr IV .Q1H1M KESHAWN Stop: 06/30/24 12:00 Last Admin: 06/30/24 11:00 Dose: 999 mls/hr Home Medications ?Medication ?Instructions ?Recorded ?Confirmed ?Last Taken ?Type Focalin XR 06/06/24 06/05/24 History 40 mg aripiprazole 06/06/24 06/05/24 History 5 mg divalproex 06/06/24 06/05/24 History 250 mg fluoxetine 06/06/24 06/05/24 History 40 mg guanfacine 06/06/24 06/05/24 History 3 mg melatonin 06/06/24 06/05/24 History 5 mg mirtazapine 06/06/24 06/05/24 History 7.5 mg Physical Exam Vital Signs: Vital Signs: Last Vital Signs Pulse 58 06/30/24 11:00 Resp 18 06/30/24 09:23 BP 110/73 06/30/24 11:00 Pulse Ox 99 06/30/24 09:23 O2 Del Method Room Air 06/30/24 09:23 BMI result Body Mass Index 28.5 Const: General: healthy appearing, no acute distress and well developed Orientation/consciousness: patient oriented x3 HEENT: Head: Yes normocephalic and Yes atraumatic Eyes: Conjunctivae: conjunctivae normal Neck: Neck: Yes normal visual inspection Chest: Chest palpation & inspection: normal inspection of the chest Resp: Effort & Inspection: normal respiratory effort Cardio: Rate: regular rate GI: Inspection: Yes normal to inspection Palpation (GI): Soft to palpation : Other: penile priapism Penis: circumcised Scrotum: scrotum normal Neuro: General: patient oriented x3 Extrem: General: No pedal edema Psych: Appearance: grossly normal Affect: normal affect Results Labs Labs: All other labs normal. Assessment and Plan (1) Priapism: Status: Acute Plan The patient is on several psych meds for is medical conditions which may be precipitating priapism Consider referral to Hematology for evaluation to rule out other etiologies. Procedures Date of Service Date of Service: 06/30/24 Penile Procedure Time out performed: Yes Indication: priapism management Procedural sedation: No Local anesthesia used: lidocaine 1% without epi Amount of anesthesia used (ml): 12 Priapism management: aspiration and phenylephrine injection Patient tolerated procedure: well and no complications Additional comments: 10 mL blood aspirated with 18 gauge needle, phenlyephrine 10mg/mL mixed in 10 mL normal saline, 1 mL injected x 2. Vitals evaluated during procedure, detumescence noted.
[2024-06-30 13:04] VITALS: BP 95/44; PULSE 65; RESP 16; TEMP 36.8; O2SAT 99
== END 2024-06-30 13:05 | disposition home or self-care (01) ==
PROVIDERS: Emergency Provider Emergency Medicine
DX: N48.30 Priapism, unspecified (principal); R33.9 Retention of urine, unspecified; R11.0 Nausea; Z79.899 Other long term (current) drug therapy
CPT/HCPCS: 54235; 96361; 96374; 99283; 99284; J1885; J2270; J2371

== ENCOUNTER → 2024-06-30 09:37 | Outpatient (BNV) | payer OTHER, SELFPAY | PROVIDERS: Emergency Provider Emergency Medicine; Visit Provider Urology | DX: N48.30 Priapism, unspecified (principal) | CPT/HCPCS: 54220; 54235; 99284 ==

== ENCOUNTER 2024-10-30 13:08 | Emergency (ER) | payer OTHER, SELFPAY ==
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
[2024-10-30 13:14] VITALS: BP 142/90; PULSE 101; O2SAT 97; BMI 23.5
[2024-10-30 13:24] VITALS: BP 149/85; PULSE 89; RESP 18; TEMP 36.3; O2SAT 99
[2024-10-30] MEDS: LORazepam 1 MG TABLET 2 MG PO ×2 (13:48→21:19)
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
[2024-10-30 14:25] LABS: Appearance Urine Clear; Color Urine Yellow; Glucose Urine UA Negative (Negative); Leukocyte Esterase Urine Negative (Negative); Nitrite Urine Negative (Negative); Urine Blood Negative (Negative); Urine Ketones Negative (Negative); Urine Protein Negative (Neg-Trace)
[2024-10-30 14:30] LABS: Bacteria Urine None Seen (None Seen); Hyaline Casts Urine 0-2 /LPF (0-2); RBC Urine 0-2 /HPF (0-2); Squamous Epithelial Cell Urine 0-2 /HPF (0-2); WBC Urine 0-5 /HPF (0-5)
[2024-10-30 14:38] LABS: Amphetamine Screen Urine Not Detected (Not Detect); Barbiturates, Urine Not Detected (Not Detect); Benzodiazepines Screen Urine Not Detected (Not Detect); Buprenorphine Scr Not Detected (Not Detect); Cannabinoid Screen Urine POSITIVE (Not Detect); Cocaine Screen Urine Not Detected (Not Detect); Fentanyl, urine Not Detected (Not Detect); Methadone Screen, Urine Not Detected (Not Detect); Opiate Screen Urine Not Detected (Not Detect); Oxycodone Screen Urine Not Detected (Not Detect); Phencyclidine Screen Urine Not Detected (Not Detect)
--- NOTE | 2024-10-30 14:48 | MHC.CARE ---
Reached out to [facility] [phone] to see if patient is known to them. [place]anna with crisis reports that they have not seen him for a crisis assessment since 2019. He was seen for SI, did not end up referred for IPLOC. She says it seems he has or had OP through [facility], but there has been no communication from him for a month.
--- NOTE | 2024-10-30 14:52 | PC.NURSE ---
haydena from home on a section 12. CHD/PD on scene. pt reporting SI w/o a plan. recent breakup w/ partner. denies HI. pt noted to have a knife on scene threatening to stab himself. denies ETOH/substance use. upon ED arrival - pt a&ox4. vss and up to date. pt extremely tearful - difficult to assess/have conversation with. per pt, pt states that a female that he used to have a relationship with over a year ago reached out today for the first time since they split up. pt states it made him extremely upset to the point where he pulled a knife on himself in attempt to harm himself. PD managed to discard the knife w/o difficulty. pt reports that he is not actually suicidal, states, i am just really sad. denies HI. reports previous hx of self harm. states self mutilation by cutting himself in the past. states he has not cut himself in over a year. fully healed scars noted to upper extremities bilaterally. denies substance use. reports that he is an occasional wine drinker. pt also reports noncompliant w/ medication x over a year but recently started medications again but unable to state what he takes. pt willingly took medication via PO w/o difficulty. will obtain lab work/continue plan of care.
--- NOTE | 2024-10-30 15:11 | MHC.CARE ---
Per Yolette with [facility] [phone], they assessed him in July of 2024. She reports he was brought in via ambulance for what was thought to be a psuedo seizure, however they learned that his dog had bit him in the face. His mother made statements about getting rid of the dog, which resulted in patient having a large reaction, tearful and emotional and making statements about not wanting to live anymore. Ultimately he was able to calm down, engage and was discharged home.
[2024-10-30 15:22] LABS: MANUAL DIFF FLAG NO
[2024-10-30 15:28] LABS: Basophils Absolute Auto 0.1 X10*3/uL (0.0-0.2); Basophils Percent Auto 0.5 % (0-2); Eosinophils Absolute Auto 0.1 X10*3/uL (0.0-0.4); Hematocrit 42.2 % (42.0-52.0); Hemoglobin 14.7 g/dl (14.0-18.0); Imm Gran Abs Auto 0.03 X10*3/uL (0.00-0.03); Imm Gran Pct Auto 0.3 % (0.0-0.4); Lymphocytes Absolute Auto 2.8 X10*3/uL (1.2-4.9); Lymphocytes Percent Auto 24.1 % (20-40); Mean Corpuscular HGB Conc 34.8 g/dl (31.0-36.0); Mean Corpuscular Hemoglobin 30.8 pg (27.0-33.0); Mean Corpuscular Volume 88.3 fL (80.0-98.0); Mean Platelet Volume 10.5 fL (9.4-12.4); Monocytes Absolute Auto 0.9 X10*3/uL (0.1-1.2); Neutrophils Absolute Auto 7.7 x10*3/uL (2.0-8.3); Neutrophils Percent Auto 66.1 % (45-73); Platelet Count 290 X10*3/uL (160-400); Red Blood Count 4.78 X10*6/uL (4.60-5.80); Red Cell Distribution Width 12.4 % (11.0-16.0); White Blood Count 11.6 X10*3/uL (4.8-10.8)
[2024-10-30 15:42] LABS: Alanine Aminotransferase 9 U/L (0-40); Albumin Level 4.3 g/dL (3.5-5.0); Alkaline Phosphatase 64 U/L (39-117); Anion Gap 10 (12-20); Aspartate Amino Transferase 13 U/L (5-37); Bilirubin Direct 0.2 mg/dL (0.0-0.5); Bilirubin Total 0.5 mg/dL (0.0-1.0); Blood Urea Nitrogen 11 mg/dL (9-16); Calcium 9.2 mg/dL (8.4-10.2); Carbon Dioxide 26 mmol/L (22-29); Chloride 111 mmol/L (96-108); Creatinine Clr Calc Pharmacy 142.5; Estimated Glomerular Filt Rate > 60; Ethanol < 10 mg/dL; Glucose Random 94 mg/dL (60-115); Potassium 4.3 mmol/L (3.3-5.1); Sodium 143 mmol/L (135-145)
--- NOTE | 2024-10-30 17:33 | PC.NURSE ---
pt speaking w/ care team at this time.
--- NOTE | 2024-10-30 19:59 | MHC.CARE ---
CARE team dispo is PILOC. RNAngelina and YURIY Sanders are aware
[2024-10-30] MEDS: Nicotine Polacrilex 2 MG GUM BUCCAL (22:49)
[2024-10-30 23:54] VITALS: BP 115/70; PULSE 58; RESP 16; TEMP 36.8; O2SAT 99
--- NOTE | 2024-10-31 01:00 | PC.NURSE ---
this rn assumed care of pt @ 2300. pt tearful at this time though easily redirectable mht and this rn redirected pt to room pt provided with food, warm blanket, and weighted blanket
--- NOTE | 2024-10-31 06:31 | PC.NURSE ---
pt noted to be sleeping at this time Respirations even and nonlabored lights dimmed and door closed to promote sleep
--- NOTE | 2024-10-31 07:08 | PC.NURSE ---
Pt awake and ambulating around BH pod with steady gait this am, currently reporting panic regarding a prolonged erection last more than one hour . 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 Patient crying, stating that he is extremely anxious and wants staff to drain his penis because I don't want permanent damage to be done . Patient requesting to go home stating I feel better now, you need to let me go home
[2024-10-31] MEDS: LORazepam 1 MG TABLET 2 MG PO ×2 (07:16→18:43)
[2024-10-31] MEDS: Nicotine Polacrilex 2 MG GUM BUCCAL ×3 (07:58→20:33)
--- NOTE | 2024-10-31 08:36 | PC.NURSE ---
Pt calmer at this time, now eating breakfast, offering no complaints to this RN
--- NOTE | 2024-10-31 09:26 | PC.NURSE ---
patient appears to be falling asleep in chair in hallway intermittently
[2024-10-31 14:03] VITALS: BP 104/88; PULSE 87; RESP 16; TEMP 36.3; O2SAT 99
--- NOTE | 2024-10-31 14:04 | PC.NURSE ---
Pt on phone with mom, very tearful
--- NOTE | 2024-10-31 14:12 | PC.NURSE ---
Pt angry with staff, yelling, demanding to be discharged. patient reports I need my fucking mom cristian, she needs to bring me home
[2024-10-31] MEDS: OLANZapine 10 MG VIAL 5 MG IM (14:36)
[2024-10-31] MEDS: LORazepam 2 MG/ML VIAL IM (14:36)
--- NOTE | 2024-10-31 14:37 | PC.NURSE ---
Pt escalating, speaking with someone on the phone stating this staff don't do nothing but sit on their ass and not help me . This RN attempted to ask patient if he would like someone to speak with or if he needed help with anything. Pt declined stating no, yall dont do fucking shit . Patient continued to yell and argue with staff. Security called to bedside. Patient offered PO PRN Ativan, patient declined. Dr. Mancia made aware, verbal order for 2mg Ativan IM and 5mg Zyprexa IM. Patient willingly took both IM injections, no hold necessary. patient now sitting in his room watching tv
--- NOTE | 2024-10-31 15:45 | MHC.CARE ---
Plan is for pt to d/c home. Mother can pick him up after 6pm. If pt becomes dysregulated he should be re-seen by CARE team to determine if d/c continues to be appropriate dispo
[2024-10-31 18:49] VITALS: BP 121/74; PULSE 82; RESP 18; TEMP 36.3; O2SAT 100
[2024-11-01 02:23] VITALS: BP 128/85; PULSE 80; RESP 16; TEMP 36.7; O2SAT 99
[2024-11-01] MEDS: LORazepam 1 MG TABLET 2 MG PO (02:32)
[2024-11-01] MEDS: Nicotine Polacrilex 2 MG GUM BUCCAL (02:59)
[2024-11-01 06:02] VITALS: BP 131/84; PULSE 67; RESP 18; O2SAT 100
[2024-11-01] MEDS: 0.9 % Sodium Chloride 2,000 ML 999 ML IVCONT (06:20)
[2024-11-01] MEDS: Phenylephrine HCL 1,000 MCG/10 ML SYRINGE 1000 MCG IVPUSH (06:39)
[2024-11-01] MEDS: Lidocaine HCl 1 % 10 ML VIAL 30 ML INFILTRATI (06:40)
--- NOTE | 2024-11-01 07:40 | PHA.MEDREC ---
Pharmacy Consult ? Medication Reconciliation Pharmacy has completed the medication reconciliation. Reviewed med rec done by nursing (Hugo).
[2024-11-01 07:44] LABS: VBG Base Excess -28.8 mmol/L; VBG HCO3 9 mmol/L (22-26); VBG pCO2 78 mmHg; VBG pH 6.67 (7.32-7.43); VBG pO2 38 mmHg
[2024-11-01 07:45] LABS: Venous Blood Gas Refer to POC result
[2024-11-01 08:42] VITALS: BP 100/57; PULSE 62
--- NOTE | 2024-11-01 09:17 | PC.NURSE ---
Care of Pt assumed at change of shift. Procedure to drain penis completed by Dr. Arredondo. Dr. Melton assumes care of Pt and sees Pt at bedside. Per Dr. Melton, Pt will need specialty consultation as he continues to have an erection. Orders received that Pt is have an ice pack applied to penis and 1L of IVF. Pt currently with 1L NS running; new ice pack provided to Pt. Pt states he does not want to apply ice pack and wishes to be d/c'd. Pt requests to call his mother--advised that portable phone will be provided. Awaiting consultation.
[2024-11-01] MEDS: diphenhydrAMINE HCL 50 MG/ML VIAL IVPUSH (12:08)
[2024-11-01] MEDS: 0.9 % Sodium Chloride 1,000 ML 999 ML IV (12:08)
[2024-11-01 13:48] VITALS: BP 104/79; PULSE 62; RESP 16; TEMP 36.8; O2SAT 98
== END 2024-11-01 13:48 | disposition home or self-care (01) ==
PROVIDERS: Emergency Medicine; Emergency Provider Emergency Medicine
DX: F43.20 Adjustment disorder, unspecified (principal); N48.30 Priapism, unspecified; R11.0 Nausea; R45.851 Suicidal ideations; F33.1 Major depressive disorder, recurrent, moderate; F41.1 Generalized anxiety disorder; Z79.899 Other long term (current) drug therapy; Z51.81 Encounter for therapeutic drug level monitoring
CPT/HCPCS: 36415; 80048; 80076; 80307; 81001; 82803; 83735; 85025; 96361; 96372; 96374; 96375; 99285; J1200; J2003; J2060; J2359; J2371; S9485

== ENCOUNTER 2024-11-06 18:40 | Emergency (ER) | payer OTHER, SELFPAY ==
[2024-11-06 18:52] VITALS: BP 107/83; PULSE 91; RESP 18; TEMP 36.7; O2SAT 98; BMI 25.5
--- NOTE | 2024-11-06 18:53 | ED.MALEGU ---
HPI - Male Genitourinary General Chief complaint: Urogenital-Male Stated complaint: Erection again? Said he was here before Time Seen by Provider: 11/06/24 20:42 History of Present Illness ED Provider: Ruby ARREAGA Narrative: The patient is a 24-year-old male with a history of previous priapism. I believe when he first had such an episode he was on trazodone as well as other psychiatric medications. He has had 4 or 5 previous episodes of priapism requiring intervention. The patient says that he developed an erection last night at around 21:00 that has persisted until this evening. He describes it as quite uncomfortable and he reports that it is difficult to urinate. No fever, sweats, chills. He says that he is off all medications which might provoke a priapism. He says he does not use any Viagra or Cialis. Related Data Home Medications ?Medication ?Instructions ?Recorded ?Confirmed desvenlafaxine succinate 50 mg 50 mg PO DAILY 10/31/24 10/31/24 tablet,extended release 24 hr guanfacine 4 mg tablet,extended 8 mg PO DAILY 10/31/24 11/01/24 release 24 hr Previous Rx's ?Medication ?Instructions ?Recorded terbutaline 5 mg tablet 5 mg PO BID #28 tabs 11/01/24 ketoconazole 200 mg tablet 200 mg PO TID 5 days #15 tabs 11/06/24 Allergies Allergy/AdvReac Type Severity Reaction Status Date / Time No Known Allergies Allergy Verified 11/06/24 18:55 Review of Systems Review of Systems: Yes all other systems are reviewed and are negative [facility] Past Medical History Medical History ADHD Bipolar disorder Priapism Social History Social History Alcohol intake: current Alcohol intake frequency: holidays/special occasions only Alcohol type: wine Smoked in Last 30 Days: No Substance Use Type: Marijuana Advance Directives: No Advance Directives Information Provided: No Do you have a plan to hurt others: No Plan Physical Exam Vital Signs: Vital Signs: Last Vital Signs Temp 98 F 11/07/24 00:08 Pulse 87 11/07/24 00:08 Resp 16 11/07/24 00:08 BP 124/76 11/07/24 00:08 Pulse Ox 18 L 11/07/24 00:08 O2 Del Method Room Air 11/07/24 00:08 BMI result Body Mass Index 25.5 Const: Other: The patient is a 24-year-old who was awake and alert. He looks somewhat uncomfortable. HEENT: Other: Face is symmetrical. Mucous membranes moist. Eyes: General: appearance normal, both eyes and all related structures Neck: Neck: Yes full ROM Resp: Effort & Inspection: normal respiratory effort Auscultation: clear to auscultation bilaterally Cardio: Rate: regular rate Rhythm: regular rhythm Heart sounds: S1 normal heart sound present and S2 normal heart sound present GI: Other: Abdomen is soft and nontender : Other: The patient has a circumcised erect penis consistent with priapism. Scrotal contents are unremarkable. Skin: Other: Skin is dry and unremarkable Neuro: Other: The patient is awake and alert. He had an anxious affect. Cranial nerves are intact. He moves his extremities normally. Extrem: Other: No peripheral edema Course Course Course Narrative: This is a rapid medical exam. Deferred additional HPI, ROS, PE to primary provider. 24 yo male here with erection since 9am. Tried taking one terbutaline at home prior to arrival. Seen 10/30 in ER for same. Has follow-up appt with urology on 11/10. Unable to visualize in triage. ROSEMARY Mann APRN Medications Administered Discontinued Medications Generic Name Dose Route Start Last Admin Trade Name Freq PRN Reason Stop Dose Admin Ketorolac Tromethamine 30 mg 11/06/24 22:23 11/06/24 22:27 Ketorolac Tromethamine 30 Mg/Ml Vial IM 11/06/24 22:24 30 mg ONCE ONE Administration Lidocaine HCl 10 ml 11/06/24 21:01 11/06/24 21:08 Lidocaine Hcl 1 % Mpf 5 Ml Vial INFILTRATI 11/06/24 21:02 10 ml ONCE ONE Administration Lorazepam 2 mg 11/06/24 20:52 11/06/24 21:07 Lorazepam 2 Mg/Ml Vial IM 11/06/24 20:53 2 mg STAT STA Administration Lorazepam 2 mg 11/06/24 22:50 11/06/24 23:08 Lorazepam 2 Mg/Ml Vial IM 11/06/24 22:51 2 mg STAT STA Administration Phenylephrine HCl 1,000 mcg 11/06/24 21:00 11/06/24 22:16 Phenylephrine Hcl 1,000 Mcg/10 Ml Syringe IVPUSH 11/06/24 21:01 1,000 mcg ONCE ONE Administration Terbutaline Sulfate 0.25 mg 11/06/24 20:55 11/06/24 21:15 Terbutaline Sulfate 1 Mg/Ml Vial SUBCUT 11/06/24 20:56 0.25 mg ONCE ONE Administration Medical Decision Making Medical Decision Making [facility] Narrative: The patient is a 24-year-old male who presents for evaluation priapism which has been present for about 24 hours. He has a history of previous episodes of priapism requiring intervention in the emergency room. He states that he does not think he is still on any medications that might provoke a priapism. His mother indicates that she has sickle cell trait. The patient was given a dose of subcutaneous terbutaline and 2 mg of IM lorazepam. Case was discussed with Dr. Rowan of Urology who recommended the tumescence by aspiration an injection of phenylephrine. The penis was prepped Betadine as was the base of the penis. A dorsal block was applied using 5 mL of 1% lidocaine injected at the base of the penis dorsally. Using a 21 gauge butterfly needle under sterile conditions I aspirated approximately 20 mL of blood from the left corpus cavernosum. I then repeated the procedure on the right sided and aspirated approximately 16 mL of blood. Dilute phenylephrine was injected into both sides of the penis. There seemed to be significant the tumescence after this intervention. Somewhat later the patient seemed to have some slight recurrence of tumescence and complained of pain that he felt at the glans of the penis. Glans was soft however. Case was again reviewed with Dr. Rowan. The patient was given a dose of IM ketorolac and another dose of IM lorazepam. He fell asleep. Seemed to again achieve significant if not total the tumescence. The case was discussed with Dr. Rowan who recommended that he be discharged with a prescription for ketoconazole 200 mg t.i.d. to reduce the patient's testosterone level. The patient has a follow up appointment already scheduled with the urology office on November 10, next week. He was discharged with his mother. He should return if worse. He was feeling considerably better at the time of discharge. Lab Data Labs: Lab Results 11/06/24 11/06/24 Range/Units 23:50 23:51 Urine Color Yellow Urine Appearance Clear Urine pH 6.0 (5.0-9.0) Ur Specific [place] 1.010 (1.005-1.025) Urine Protein Negative (Neg-Trace) mg/dL Urine Glucose (UA) Negative (Negative) mg/dL Urine Ketones Negative (Negative) mg/dL Urine Blood Negative (Negative) Urine Nitrite Negative (Negative) Ur Leukocyte Esterase Negative (Negative) Urine Opiates Screen Not Detected (Not Detect) Ur Buprenorphine Scrn Not Detected (Not Detect) ng/mL Ur Oxycodone Screen Not Detected (Not Detect) ng/mL Urine Methadone Screen Not Detected (Not Detect) ng/mL Urine Fentanyl Screen Not Detected (Not Detect) Ur Barbiturates Screen Not Detected (Not Detect) Ur Phencyclidine Scrn Not Detected (Not Detect) Ur Amphetamines Screen Not Detected (Not Detect) U Benzodiazepines Scrn Not Detected (Not Detect) Urine Cocaine Screen Not Detected (Not Detect) U Marijuana (THC) Screen POSITIVE H (Not Detect) Procedures Penile Procedure Time Out Performed: Yes Indication: priapism management Sedation/Analgesia: benzodiazepines (2mg IM Lorazepam) Local Anesthesia Used: lidocaine 1% without epi Amount of anesthesia used (mL): 5 Priapism Management: aspiration and phenylephrine injection Patient Tolerated Procedure: well Additional Comments: Penis and base of the penis were prepped with Betadine. A dorsal block was administered using a 27 gauge needle with 5 mL of lidocaine at the base of the penis dorsally. I used a 21 gauge butterfly needle to aspirate the left side of the penis and aspirated approximately 20 mL of blood. This was repeated on the right side of the penis and approximately 16 mL of blood were aspirated. Phenylephrine was injected into both sides. Discharge Plan Discharge Clinical Impression: Priapism Patient Disposition: Home, Self-Care Instructions: Priapism (ED) Additional Instructions: Please rest and take it easy tonight. The urologist has recommended that you take the medication ketoconazole 3 times a day for the next several days. Please keep your appointment with the urologist next week. Return to the emergency room if you feel significantly worse at any time. Prescriptions: New ketoconazole 200 mg tablet 200 mg PO TID 5 Days Qty: 15 0RF No Action guanfacine 4 mg tablet extended release 24 hr 8 mg PO DAILY desvenlafaxine succinate 50 mg tablet extended release 24 hr 50 mg PO DAILY terbutaline 5 mg tablet 5 mg PO BID Qty: 28 0RF Referrals: [facility] [Provider Group] (Recurrent priapisms) Interventions: ED Discharge Assessment Last Done: 11/07/24 00:08 Discharge Date/Time: 11/07/24 00:09 Print Language: Luxembourgish
[2024-11-06 20:08] VITALS: BP 136/77; PULSE 85; RESP 18; TEMP 37.2; O2SAT 99
--- NOTE | 2024-11-06 20:17 | PC.NURSE ---
pt, reports erected penis since last night, and last voided around 9am today, bladder scan done with highest of 78mls, pt on terabutalin
[2024-11-06] MEDS: LORazepam 2 MG/ML VIAL IM ×2 (21:07→23:08)
[2024-11-06] MEDS: Lidocaine HCl 1 % MPF 5 ML VIAL 10 ML INFILTRATI (21:08)
[2024-11-06] MEDS: Terbutaline Sulfate 1 MG/ML VIAL 0.25 MG SUBCUT (21:15)
--- NOTE | 2024-11-06 21:25 | PC.NURSE ---
pt given ativan im per md order, not for chemical restraint.
[2024-11-06] MEDS: Phenylephrine HCL 1,000 MCG/10 ML SYRINGE 1000 MCG IVPUSH (22:16)
[2024-11-06 22:17] VITALS: BP 145/76; PULSE 80; RESP 18; TEMP 36.8; O2SAT 99
[2024-11-06] MEDS: Ketorolac Tromethamine 30 MG/ML VIAL IM (22:27)
[2024-11-06 23:57] LABS: Appearance Urine Clear; Color Urine Yellow; Glucose Urine UA Negative (Negative); Leukocyte Esterase Urine Negative (Negative); Nitrite Urine Negative (Negative); Urine Blood Negative (Negative); Urine Ketones Negative (Negative); Urine Protein Negative (Neg-Trace)
[2024-11-07 00:07] VITALS: BP 124/76; PULSE 87; RESP 16; TEMP 36.6; O2SAT 18
[2024-11-07 00:08] VITALS: BP 124/76; PULSE 87; RESP 16; TEMP 36.6; O2SAT 18
[2024-11-07 00:15] LABS: Amphetamine Screen Urine Not Detected (Not Detect); Barbiturates, Urine Not Detected (Not Detect); Benzodiazepines Screen Urine Not Detected (Not Detect); Buprenorphine Scr Not Detected (Not Detect); Cannabinoid Screen Urine POSITIVE (Not Detect); Cocaine Screen Urine Not Detected (Not Detect); Fentanyl, urine Not Detected (Not Detect); Methadone Screen, Urine Not Detected (Not Detect); Opiate Screen Urine Not Detected (Not Detect); Oxycodone Screen Urine Not Detected (Not Detect); Phencyclidine Screen Urine Not Detected (Not Detect)
== END 2024-11-07 00:09 | disposition home or self-care (01) ==
PROVIDERS: Emergency Provider Emergency Medicine
DX: N48.33 Priapism, drug-induced (principal); Z51.81 Encounter for therapeutic drug level monitoring; Z79.899 Other long term (current) drug therapy
CPT/HCPCS: 54220; 80307; 81003; 96372; 96374; 99285; J1885; J2003; J2060; J2371; J3105

== ENCOUNTER 2024-11-09 10:07 | Emergency (ER) | payer OTHER, SELFPAY ==
--- NOTE | 2024-11-09 10:12 | ED_ITS ---
HPI - General Adult General Chief complaint: Urogenital-Male Stated complaint: SUSTAINED ERECTION Time Seen by Provider: 11/09/24 10:12 Source: patient and EMS Mode of arrival: EMS Limitations: no limitations History of Present Illness ED Provider: Stephanie Biswas PA-C HPI narrative: Patient is a 24 year old assigned male at with a history of priapisms and sickle cell trait presenting to the emergency department today with a sustained erection. Patient states that this has happened to him multiple times requiring drainage. Patient states that he was recently prescribed medication he was supposed to take but he was only taking them when he felt an erection coming on and not all the time like he was supposed to be. Patient states that he has had this erection >6 hours. Patient denies any dizziness, lightheadedness, abdominal pain, nausea, vomiting, fever, chills, blurry vision, double vision, loss of vision, chest pain, difficulty breathing, shortness of breath, back pain , night sweats, pain with urination, increased urinary frequency, increased urinary urgency, blood in his urine or stool, syncope or a near syncopal episode, recent trauma or falls, bowel incontinence, bladder incontinence, or any other complaints at this time. Relieving factors: none Exacerbating factors: none Associated symptoms: denies other symptoms Treatments prior to arrival: none Related Data Home Medications ?Medication ?Instructions ?Recorded ?Confirmed desvenlafaxine succinate 50 mg 50 mg PO DAILY 10/31/24 10/31/24 tablet,extended release 24 hr guanfacine 4 mg tablet,extended 8 mg PO DAILY 10/31/24 11/01/24 release 24 hr Previous Rx's ?Medication ?Instructions ?Recorded terbutaline 5 mg tablet 5 mg PO BID #28 tabs 11/01/24 ketoconazole 200 mg tablet 200 mg PO TID 5 days #15 tabs 11/06/24 Allergies Allergy/AdvReac Type Severity Reaction Status Date / Time No Known Allergies Allergy Verified 11/09/24 10:20 Review of Systems Constitutional: Constitutional: Reports no additional constitutional complaints, Denies chills, Denies fever(s) and Denies night sweats Eyes: Eyes: Reports no additional eye complaints, Denies blurry vision, Denies change in vision, Denies diplopia, Denies eye discharge, Denies loss of vision and Denies eye pain ENT: Denies dizziness Cardiovascular: Cardiovascular: Reports no additional cardiovascular complaints, Denies chest pain, Denies lightheadedness, Denies Loss of Consciousness and Denies dyspnea Respiratory: Respiratory: Reports no additional respiratory complaints and Denies dyspnea Gastrointestinal: Gastrointestinal: Reports no additional gastrointestinal complaints, Denies abdominal pain, Denies melena, Denies hematochezia, Denies change in bowel habits and Denies change in stool character Genitourinary: Genitourinary: Reports no additional male genitourinary complaints, Denies hematuria, Denies oliguria, Denies difficulty urinating, Denies dysuria, Denies urinary frequency, Denies urinary hesitancy, Denies urinary incontinence and Denies urinary urgency Comments: >6 hours of an erection Musculoskeletal: Musculoskeletal: Reports no additional musculoskeletal complaints, Denies numbness and Denies tingling Neurologic: Denies dizziness, Denies loss of vision, Denies numbness and Denies tingling Psychiatric: Psychiatric: Reports no additional psychiatric complaints Endocrine: Endocrine: Reports no additional endocrine complaints Hematologic/Lymphatic: Hematologic/Lymphatic: Reports no additional hematologic/lymphatic complaints Allergic/Immunologic: Allergic/Immunologic: Reports no additional allergic/immunologic complaints [facility] Past Medical History Attestation statement: The following information was validated with the patient. Source: old records reviewed and nursing notes reviewed Medical History ADHD Bipolar disorder Priapism Social History Social History Alcohol intake: unknown Smoked in Last 30 Days: Yes Use of substances other than those prescribed or required for medical reasons: Yes Substance Use Type: Marijuana Substance Use Frequency: Occasionally Last Used Substance: Just Prior to Admission Any prior treatment program specific to substance use: No Advance Directives: No Advance Directives Information Provided: Yes Do you have a plan to hurt others: No Plan Physical Exam ED Vital Signs: Vital Signs - 24 hr 11/09/24 10:18 11/09/24 12:46 11/09/24 13:18 Temperature 98.5 F 97.3 F Pulse Rate 88 88 68 Respiratory Rate 18 16 Blood Pressure 161/111 H 145/66 H 101/61 Pulse Oximetry 98 98 Oxygen Delivery Method Room Air Room Air Oxygen Flow Rate 11/09/24 13:21 11/09/24 13:36 11/09/24 14:33 Temperature 97.9 F Pulse Rate 57 50 56 Respiratory Rate 14 Blood Pressure 106/60 203/114 H 102/53 L Pulse Oximetry 95 95 Oxygen Delivery Method Room Air Room Air Oxygen Flow Rate 97 BMI result Body Mass Index 25.1 Const General: cooperative, no acute distress, alert and awake Nutritional Appearance: well nourished Orientation/consciousness: patient oriented x3 Limitations: no limitations HENMT Head: Yes normal to inspection and Yes atraumatic Ears: hearing grossly normal bilaterally and external ears normal General nose exam: Normal external nose present, no nasal discharge noted and no epistaxis Face and sinus: Yes normal facial exam, No abrasion and No laceration Mouth: Normal oral and palatal mucosa present, no drooling and no muffled voice Eyes General: appearance normal, both eyes and all related structures Periorbital: periorbital findings normal Eyelids: Yes eyelids normal Conjunctivae: conjunctivae normal Pupils: Equal, round and reactive pupils present EOM: EOMs intact bilaterally Neck Neck: Yes normal visual inspection, Yes full ROM and Yes no lymphadenopathy Chest Chest palpation & inspection: normal inspection of the chest Resp Effort & Inspection: normal respiratory effort and able to speak in complete sentences GI Inspection: Yes normal to inspection Other: erect penis Neuro General: patient oriented x3 and moves all extremities Cranial nerves: Yes Equal, round and reactive pupils present Cognition (Neuro): normal cognition Extrem General: Yes normal to inspection, Yes full ROM and Yes capillary refill normal Psych Appearance: grossly normal Mental Status: mental status grossly normal Affect: normal affect Attitude: cooperative Thought process: Normal thought process present Thought content: Normal thought content present Insight: Good insight present (Psych) Medications Administered Discontinued Medications Generic Name Dose Route Start Last Admin Trade Name Cyq PRN Reason Stop Dose Admin Lorazepam 2 mg 11/09/24 10:50 11/09/24 10:54 Lorazepam 1 Mg Tablet PO 11/09/24 10:51 2 mg ONCE ONE Administration Morphine Sulfate 4 mg 11/09/24 11:06 11/09/24 11:10 Morphine Sulfate 4 Mg/Ml Cartridge IM 11/09/24 11:07 4 mg ONCE ONE Administration Protocol Phenylephrine HCl 0.1 mg 11/09/24 10:23 11/09/24 12:46 Phenylephrine Hcl 10 Mg/Ml Vial IVPUSH 11/09/24 10:24 0.1 mg ONCE ONE Administration Phenylephrine HCl 0 mg 11/09/24 12:49 11/09/24 13:21 Phenylephrine Hcl 10 Mg/Ml Vial INTRACAVER 11/09/24 12:50 10 mg ONCE ONE Administration Procedures Penile Procedure Time Out Performed: Yes Indication: priapism management Procedural Sedation: Yes Sedation/Analgesia: opioids Local Anesthesia Used: lidocaine 1% without epi Amount of anesthesia used (mL): 10 Priapism Management: aspiration and phenylephrine injection Patient Tolerated Procedure: well Complications: none Medical Decision Making Medical Decision Making MDM Narrative: Patient is a 24 year old assigned male at with a history of priapisms and sickle cell trait presenting to the emergency department today with a sustained erection. Patient's physical exam was as noted in the physical exam portion of this note. I explained my physical exam findings to the patient and the patient's mother. I answered all questions asked by the patient and the patient's mother. Patient received Morphine and Ativan which, upon re- evaluation, he stated it helped his pain and anxiety significantly. Dr. Rowan from Urology was consulted. Dr. Rowan, with my assistance, performed a ring block of the penis and manually drained / irrigated the penis. Ultimately, the penis then required an injection of phenylephrine. The combination of both of these things allowed for the penis to soften. However, after 20 minutes, the patient's penis was erect again. At that time, Dr. Beltran assisted me in providing an additional dose of phenylephrine into the penis and that allowed the penis to soften. Patient's penis remained softened. I stressed the importance of the patient taking his medication as directed (either prescribed or as the over the counter packaging recommends). I stressed the importance of the patient following up with his primary care provider and with his urologist (on 11/11/2024 as scheduled). I stressed the importance of the patient returning to the emergency department immediately if his symptoms were to worsen or if he were to develop any dizziness, shortness of breath, difficulty breathing, chest pain, blurry vision, loss of vision, nausea, vomiting, abdominal pain, fever, chills, back pain, or any other complaints. Patient and the patient's mother verbalized agreement and understanding with this treatment plan and discharge. Differential Diagnosis Differential Diagnoses: The differential diagnosis associated with the presentation includes Priapism Sickle cell trait Admission/Observation Consideration of admission/observation: Escalation of care including admission/observation considered Patient would have been admitted to the hospital had his work up had any findings where hospital admission was appropriate and his clinical presentation warranted hospital admission. 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 Rowan, the Urologist, as noted in the MDM Rationale portion of this note.) Independent Historian Clinical information obtained from an independent historian. History obtained from or confirmed by: Parent (patient's mother provided additional history and confirmed the history provided by the patient.) Critical Care Time Critical Care Time Critical Care Time: Yes Total Critical Care Time: 41 Attestation: I spent 41 minutes of Critical Care Time with this patient. This does not include time spent on separately reported billable procedures. Discharge Plan Discharge Clinical Impression: Priapism Patient Disposition: Home, Self-Care Instructions: [facility] (ED) Additional Instructions: Follow up with your primary care provider and your urologist as scheduled. Return to the emergency department immediately if your symptoms worsen or if you develop any dizziness, shortness of breath, difficulty breathing, chest pain, blurry vision, loss of vision, nausea, vomiting, abdominal pain, fever, chills, back pain, or any other complaints. Prescriptions: No Action guanfacine 4 mg tablet extended release 24 hr 8 mg PO DAILY desvenlafaxine succinate 50 mg tablet extended release 24 hr 50 mg PO DAILY terbutaline 5 mg tablet 5 mg PO BID Qty: 28 0RF ketoconazole 200 mg tablet 200 mg PO TID 5 Days Qty: 15 0RF Referrals: [facility] [place] [facility] [place]] (Call to establish and follow up with a primary care provider. If you already have a primary care provider, please follow up with them.) [facility] [place] [facility]] (Call to establish and follow up with a primary care provider. If you already have a primary care provider, please follow up with them.) [facility] [place] [facility] Group] (Call to establish and follow up with a primary care provider. If you already have a primary care provider, please follow up with them.) [facility] [place] [facility] [Provider Group] (Follow up with your urologist as scheduled tomorrow (11/10/2024). ) Stand Alone Forms: Work/School Release Interventions: ED Discharge Assessment Last Done: 11/09/24 14:33 Discharge Date/Time: 11/09/24 14:42 Print Language: Luxembourger
[2024-11-09 10:18] VITALS: BP 161/111; PULSE 88; RESP 18; TEMP 36.9; O2SAT 98; BMI 25.1
[2024-11-09] MEDS: LORazepam 1 MG TABLET 2 MG PO (10:54)
[2024-11-09] MEDS: Morphine Sulfate 4 MG/ML CARTRIDGE IM (11:10)
[2024-11-09 12:46] VITALS: BP 145/66; PULSE 88
[2024-11-09] MEDS: Phenylephrine HCL 10 MG/ML VIAL IVPUSH (12:46)
[2024-11-09 13:18] VITALS: BP 101/61; PULSE 68; RESP 16; TEMP 36.3; O2SAT 98
[2024-11-09 13:21] VITALS: BP 106/60; PULSE 57
[2024-11-09] MEDS: Phenylephrine HCL 10 MG/ML VIAL INTRACAVER (13:21)
--- NOTE | 2024-11-09 13:30 | PC.NURSE ---
After dilution MD administered 3mls on left side of penis and 1ml on right side of penis of phenylephrine .
[2024-11-09 13:36] VITALS: BP 203/114; PULSE 50; O2SAT 95
--- NOTE | 2024-11-09 13:40 | PC.NURSE ---
Provider aware of elevated BP, at bedside to assess patient- no new orders at this time
[2024-11-09 14:33] VITALS: BP 102/53; PULSE 56; RESP 14; TEMP 36.6; O2SAT 95
== END 2024-11-09 14:42 | disposition home or self-care (01) ==
PROVIDERS: Emergency Provider Emergency Medicine
DX: N48.30 Priapism, unspecified (principal); Z79.899 Other long term (current) drug therapy
CPT/HCPCS: 54220; 96372; 96374; 99284; J2270; J2371